=== PATIENT | male | born 1980 | race Caucasian/White ===

== ENCOUNTER 2018-11-09 16:36 | Inpatient (IN) | payer OTHER ==
[2018-11-09 17:08] LABS: #Basophils 0.1 thou/uL (0.0-0.2); #Eosinphils 0.1 thou/uL (0.0-0.7); #Lymphocytes 1.6 thou/uL (1.20-3.40); #Monocytes 0.6 thou/uL (0.11-0.59); #Neutrophils 8.5 thou/uL (1.40-6.50); %Basophils 0.7 % (0.0-1.0); %Eosinophils 0.7 % (0.0-10.0); %Lymphocytes 14.7 % (21.0-51.0); %Monocytes 5.5 % (0.0-10.0); %Neutrophils 78.4 % (42.0-75.0); Hemoglobin 14.8 g/dL (14.0-18.0); Mean Corpuscular HGB CONC 33.5 g/dL (32.0-36.0); Mean Corpuscular Hemoglobin 31.8 pg (27.0-31.0); Mean Corpuscular Volume 94.8 fL (78.0-98.0); Mean Platelet Volume 7.9 fL (7.4-10.4); Platelet Count 239 thou/uL (130-400); RBC Distribution Width 11.5 % (11.5-14.5); Red Blood Cell (RBC) Count 4.65 mill/uL (4.70-6.10); White Blood Cell (WBC) Count 10.9 thou/uL (4.8-10.8)
[2018-11-09 17:31] LABS: ALT (SGPT) 17 U/L (8-55); AST (SGOT) 11 U/L (5-34); Albumin 4.4 g/dL (3.5-5.0); Alkaline Phosphatase 63 U/L (40-150); Anion Gap 14 mmol/L (10-20); BUN (Urea Nitrogen) 12 mg/dL (8.9-20.6); Bilirubin, Total 0.4 mg/dL (0.2-1.2); Calc. Creatinine Clearance 0 mL/min (70-130); Calcium 9.2 mg/dL (7.8-10.44); Carbon Dioxide 23 mmol/L (22-29); Chloride 106 mmol/L (98-107); Estimated GFR-MDRD 85; Globulin 3.1 g/dL (2.4-3.5); Glucose 162 mg/dL (70-105); Potassium 4.2 mmol/L (3.5-5.1); Protein, Total 7.5 g/dL (6.0-8.3); Sodium 139 mmol/L (136-145)
--- NOTE | 2018-11-09 18:13 | RAD ---
PORTABLE CHEST ONE VIEW 11/09/18 at 4:55 p.m. HISTORY: Chest pain, syncope. Collapse. FINDINGS: Comparison made with exam of 11/30/10. The heart size is normal. The lungs are expanded without focal areas of consolidation, pneumothoraces or pleural effusions. IMPRESSION: No radiographic evidence of acute cardiopulmonary process. POS: [facility]
[2018-11-09] MEDS ORDERED: Ondansetron PF 4 MG/2 ML Vial IVP PRN (21:58)
[2018-11-09] MEDS ORDERED: Guaifenesin DM 100-10/5 ML UDCUP PO PRN (21:58)
[2018-11-09] MEDS ORDERED: Ondansetron ODT 4 MG TAB PO PRN (21:58)
[2018-11-09] MEDS ORDERED: Acetaminophen 650 MG Suppository PR PRN (21:58)
[2018-11-09] MEDS ORDERED: Acetaminophen 325 MG TAB PO PRN (21:58)
[2018-11-09] MEDS ORDERED: Senokot S 8.6-50 MG TAB PO PRN (21:58)
[2018-11-09 22:00] VITALS: BMI 27.8
[2018-11-09] MEDS ORDERED: Diltiazem 125 MG in Sodium Chloride 0.9% 100 ML IVPB SCH (22:15)
[2018-11-09] MEDS ORDERED: Enoxaparin Sodium 100 MG/ML SYRINGE SC SCH (22:15)
[2018-11-09] MEDS ORDERED: Famotidine 20 MG TAB PO SCH (22:15)
[2018-11-10 00:08] LABS: Troponin I Less than 0.010 ng/mL (< 0.028)
[2018-11-10 02:19] LABS: Troponin I Less than 0.010 ng/mL (< 0.028)
--- NOTE | 2018-11-10 02:31 | HP ---
PRIMARY CARE PHYSICIAN: Out of town. CHIEF COMPLAINT: Syncope, heart racing. HISTORY OF PRESENT ILLNESS: This is a 38-year-old white male with no known past medical history, who was in town picking up his daughter from school. He was sitting in his car and suddenly felt warm and lightheaded, turned on the air conditioner, but felt worse and then eventually passed out. He looked at the clock just before he passed out and then when he woke up it was about 10 minutes later. He also noticed a cracked right posterior molar that he thinks from hitting his chin on the steering wheel when he passed out. No other injuries. He did pickle solution maker his daughter from school, was driving down the street and felt lightheaded and heart racing, so he pulled over and they called an ambulance. He was found to be in atrial fibrillation with rapid ventricular rate, was brought to the emergency room, given Cardizem push in the ambulance. His heart rate came down from 160s to 120s when he arrived here, he was put on a Cardizem drip and is now running in the 90s to 110s. He is no longer having any lightheadedness or weakness. No other complaints. He never had any chest pain. PAST MEDICAL HISTORY: Intermittent acid reflux. PAST SURGICAL HISTORY: Bilateral eye surgery for lazy eye 20 years ago. SOCIAL HISTORY: No tobacco or illicit drug use. He drinks alcohol regularly. He did have about half a beer today. No caffeine intake. FAMILY HISTORY: Father and paternal grandmother had atrial fibrillation. ALLERGIES: 1,3 BUTYLENE GLYCOL. CURRENT MEDICATIONS: None. REVIEW OF SYSTEMS: CONSTITUTIONAL: No fevers. No chills. EYES: He does get intermittent double vision when he is tired. This is chronic. ENT: No congestion, drainage, or sore throat. CARDIOVASCULAR: See HPI. PULMONARY: No coughing, wheezing, or shortness of breath. GASTROINTESTINAL: No abdominal pain. No nausea or vomiting. No diarrhea or constipation. GENITOURINARY: No dysuria or hematuria. MUSCULOSKELETAL: No muscle aches or joint pain. He does feel a little sore along the front of his stomach and chest, however, but no bruising that he has noted. SKIN: No rashes or lesions noted. NEUROLOGIC: See HPI. No current numbness, tingling, or focal weakness. PHYSICAL EXAMINATION: VITAL SIGNS: Blood pressure 99/71, pulse 112, respirations 16, O2 saturation 99% on 2 L, temperature 97.3. GENERAL: This is a well-developed, well-nourished white male, in no acute distress. HEENT: Pupils equal, round, and reactive to light. Oropharynx clear without lesions, erythema, or exudate. The patient does appear to have a nondisplaced crack of his right second inferior molar without any pieces missing. NECK: Supple. No lymphadenopathy. No thyroid nodules or enlargement. HEART: Irregularly irregular rhythm. Mildly tachycardic. No murmurs, rubs, or gallops. LUNGS: Clear to auscultation bilaterally. No wheezes, crackles, or rhonchi. ABDOMEN: Soft. Mild tenderness to palpation in the anterior abdominal wall. No guarding. No rebound tenderness. No masses or hepatosplenomegaly. Normoactive bowel sounds. EXTREMITIES: No clubbing, cyanosis, or edema. Good peripheral pulses. SKIN: No rashes or lesions noted. No bruising or other evidence of trauma noted. NEUROLOGIC: Intact strength and sensation in all extremities. Normal reflexes. No facial droop please. IMAGING DATA: EKG done in the emergency room dose shows atrial fibrillation with rapid ventricular rate. No ST-segment changes. Chest x-ray; I did review the chest x-ray done in the emergency room along with the radiologist's report. There is no evidence of acute cardiopulmonary process. LABORATORY DATA: CBC grossly within normal limits. D-dimer negative. Complete metabolic panel notable for glucose of 162. Troponin was negative. Brain natriuretic peptide was normal. ASSESSMENT: 1. Atrial fibrillation with rapid ventricular rate, acute onset, currently controlled with Cardizem. We will put the patient in the IMCU. Continue Cardizem at 10 mg/hr and we will have Cardiology evaluate him. He will likely need EP evaluation as well and would probably benefit from cardioversion and ablation if amenable. We will get an echocardiogram as well. I am starting him on full-dose Lovenox. 2. Syncope secondary to atrial fibrillation with rapid ventricular rate, resolved with control of heart rate. 3. Tooth fracture, nondisplaced, not hurting currently. We will have him follow up with a dentist as an outpatient. 4. Gastrointestinal prophylaxis. We will put the patient on Pepcid twice a day. 5. Deep venous thrombosis prophylaxis. The patient was on Lovenox already. 6. Code status. I did discuss this with the patient, he is a full code. Should he be incapacitated, his medical decision maker would be his . Her name is nIes Orr. Job ID: [id number]
[2018-11-10 05:47] LABS: #Basophils 0.1 thou/uL (0.0-0.2); #Eosinphils 0.1 thou/uL (0.0-0.7); #Lymphocytes 1.9 thou/uL (1.20-3.40); #Monocytes 0.5 thou/uL (0.11-0.59); #Neutrophils 3.3 thou/uL (1.40-6.50); %Eosinophils 1.6 % (0.0-10.0); %Lymphocytes 32.3 % (21.0-51.0); %Monocytes 8.9 % (0.0-10.0); %Neutrophils 56.2 % (42.0-75.0); Hemoglobin 13.2 g/dL (14.0-18.0); Mean Corpuscular HGB CONC 32.2 g/dL (32.0-36.0); Mean Corpuscular Hemoglobin 31.3 pg (27.0-31.0); Mean Corpuscular Volume 97.2 fL (78.0-98.0); Mean Platelet Volume 8.1 fL (7.4-10.4); Platelet Count 210 thou/uL (130-400); RBC Distribution Width 11.7 % (11.5-14.5); Red Blood Cell (RBC) Count 4.22 mill/uL (4.70-6.10); White Blood Cell (WBC) Count 5.9 thou/uL (4.8-10.8)
[2018-11-10 06:06] LABS: Anion Gap 8 mmol/L (10-20); BUN (Urea Nitrogen) 9 mg/dL (8.9-20.6); Calc. Creatinine Clearance 142 mL/min (70-130); Carbon Dioxide 31 mmol/L (22-29); Chloride 108 mmol/L (98-107); Estimated GFR-MDRD 85; Glucose 111 mg/dL (70-105); Potassium 4.9 mmol/L (3.5-5.1); Sodium 142 mmol/L (136-145)
[2018-11-10] MEDS ORDERED: Enoxaparin Sodium 100 MG/ML SYRINGE SC SCH (09:00)
[2018-11-10] MEDS ORDERED: Famotidine 20 MG TAB PO SCH (09:00)
--- NOTE | 2018-11-10 14:47 | CON ---
DATE OF CONSULTATION: 11/10/2018 SERVICE: Pulmonary Medicine. REASON FOR CONSULT: [facility] patient. HISTORY OF PRESENT ILLNESS: The patient is a 38-year-old white male with past medical history significant for nothing. He was in his usual state of health when he had an abrupt onset of palpitations and lightheadedness. He actually syncopized for a couple of minutes. When he came to, his tooth was chipped. Apparently, he hit his chin on the steering wheel. He was at a complete stop when this occurred. He pulled out of the parking lot, which he was in, in order to find a place to recover. When he did this, he had onset of palpitations again, and some more lightheadedness, but this time did not pass out. His daughter called EMS Services and he was picked up and found to be in atrial fibrillation with RVR. Prior to this, he was in his usual state of health without fevers, chills, cough, sputum production, nausea, vomiting, diarrhea, or abdominal discomfort. PAST MEDICAL HISTORY: 1. Gastroesophageal reflux disease. 2. Atrial fibrillation, paroxysmal. PAST SURGICAL HISTORY: Eye surgery, 20 years ago, bilateral. SOCIAL HISTORY: Excessive alcohol, tobacco, or illicit drug use. He does drink some alcohol routinely. He had a beer for lunch, but prior to that, he did not have any alcohol in the last week. FAMILY HISTORY: Noncontributory. ALLERGIES: 1,3-BUTYLENE GLYCOL. MEDICATIONS: List of his inpatient medications were reviewed. REVIEW OF SYSTEMS: General; head, ears, eyes, nose, and throat; cardiovascular; respiratory; GI; ; musculoskeletal; neurologic; and skin are negative except as mentioned in the HPI. PHYSICAL EXAMINATION: VITAL SIGNS: Afebrile, pulse 66, blood pressure 106/69, respirations 11, and saturation 96% on room air. GENERAL: The patient is awake and alert, in no apparent distress. LUNGS: Excellent air entry without any prolonged expiratory phase, wheezing, rhonchi, or crackles. HEART: Bradycardic. Regular. ABDOMEN: Soft, nontender, and nondistended. Bowel sounds are positive. MUSCULOSKELETAL: No cyanosis or clubbing. No pitting in bilateral lower extremities. NEUROLOGIC: Grossly nonfocal. LABORATORY DATA: WBC 5.9, hemoglobin 13.2, and platelets 210,000. INR is less than 0.27. Basic metabolic profile is otherwise unremarkable. Liver function studies, troponin x3, and BNP are all unremarkable. IMAGING: Chest x-ray demonstrates normal cardiomediastinal silhouette. No acute cardiopulmonary abnormality is identified. There are no pleural effusions or consolidating changes. ASSESSMENT: 1. Atrial fibrillation with rapid ventricular response, returned to sinus bradycardia. 2. Syncope. DISCUSSION AND PLAN: The patient has maintained stability for the last 12 hours. At this point, he can transition to the telemetry unit. Echocardiogram was performed this morning, but results are pending. When the patient lands on the floor, he will have no further requirements for inpatient Pulmonary/Critical Care opinion, and I will sign off. Please call with additional questions or concerns through time. 70 minutes have been devoted to this patient in various activities. I personally reviewed all imaging studies and laboratory data noted within this document. For fifty percent of this time, I was interacting with the patient at the bedside or coordinating care with the care team. For the remainder of the time I was immediately available to the patient in the hospital unit. Job ID: [id number] [facility]ITAL[facility]rem[facility]
--- NOTE | 2018-11-10 20:15 | PDOC.PN ---
- Subjective Encounter Start Date: 11/10/18 Encounter Start Time: 14:30 Feels well. No complaints. Wants to get up and move around. - Objective Resuscitation Status - Order Detail: 11/09/18 19:46 Resuscitation Status Routine Resuscitation Status: FULL: Full Resuscitation Discussed with: Patient Vital Signs & Weight: Vital Signs (12 hours) Temp Pulse Ox 11/10/18 19:25 100 11/10/18 19:00 98.4 F 11/10/18 14:51 97.8 F 11/10/18 10:33 98.3 F Weight Weight 218 lb 14.4 oz Most Recent Monitor Data Heart Rate from ECG 70 NIBP 121/65 NIBP BP-Mean 83 Respiration from ECG 13 SpO2 100 I&O: 11/09/18 11/10/18 11/11/18 06:59 06:59 06:59 Intake Total 1000 Output Total 900 Balance 100 Result Diagrams: 11/10/18 05:22 11/10/18 05:22 Phys Exam - Physical Examination Constitutional: NAD Respiratory: no wheezing, no rales, no rhonchi Cardiovascular: RRR, no significant murmur, no rub Gastrointestinal: soft, non-tender, no distention Musculoskeletal: no edema Neurological: non-focal Dx/Plan (1) Paroxysmal atrial fibrillation with rapid ventricular response Code(s): I48.0 - PAROXYSMAL ATRIAL FIBRILLATION Status: Acute (2) Syncope Code(s): R55 - SYNCOPE AND COLLAPSE Status: Acute - Plan * Converted to NSR. * Off cardizem gtt. * Cardiology consult pending. * Echo results pending.
--- NOTE | 2018-11-10 23:41 | CON ---
DATE OF CONSULTATION: HISTORY OF PRESENT ILLNESS: The patient is a 38-year-old gentleman who developed palpitations and suddenly lost consciousness. The patient has no previous cardiac history. He was in his usual state of health when he started to feel warm and lightheaded. He was sitting in a car. The patient apparently lost consciousness. He reported noticing having palpitation prior to losing consciousness. He did not lose control of his bladder or bowel. The patient was taken to the emergency room for evaluation. PAST MEDICAL HISTORY: GE reflux. PAST SURGICAL HISTORY: Eye surgery. SOCIAL HISTORY: Nonsmoker. FAMILY HISTORY: Strong family history of atrial fibrillation. ALLERGIES: BUTYLENE GLYCOL. MEDICATIONS: None. REVIEW OF SYSTEMS: Ten-point system otherwise unremarkable. PHYSICAL EXAMINATION: GENERAL: Well-developed gentleman, in no acute distress. VITAL SIGNS: Blood pressure 104/70. NECK: No jugular venous distention. LUNGS: Clear to auscultation. HEART: Regular rate and rhythm. Normal S1 and S2. No murmurs. ABDOMEN: Nondistended. EXTREMITIES: Show no edema. VASCULAR: Radial pulses are 2+. LABORATORY DATA: White blood count 5.9, hemoglobin 13.2, hematocrit 41.0, and platelets are 210. His sodium was 142, potassium 4.9, chloride 108, bicarbonate 31, BUN was 9, creatinine 0.99. Troponin less than 0.01. His EKG revealed atrial fibrillation with a rapid ventricular response. IMPRESSION: 1. Atrial fibrillation. 2. Syncope. This gentleman presents with new onset atrial fibrillation. His echocardiogram reveals normal left ventricular systolic function. The patient will undergo a Cardiolite stress test to make sure there is no evidence of ischemia. The patient will be treated with aspirin. The patient will need to undergo EP evaluation with his rapid atrial fibrillation which may have caused the syncope. He may need to undergo an ablation. PLAN: 1. Proceed with Cardiolite stress testing. 2. Aspirin therapy. CHADS-VASc score is zero. 3. EP consultation. 4. Avoid operating a motor vehicle. Job ID: [id number] [facility]
[2018-11-11 04:29] VITALS: BP 100/61
--- NOTE | 2018-11-11 12:11 | PRG ---
DATE OF SERVICE: 11/11/2018 SERVICE: Pulmonary Medicine. INTERVAL HISTORY: The patient is going down for stress test today. He has no complaints of chest pain, fevers, or chills. He remains in normal sinus rhythm. PHYSICAL EXAMINATION: VITAL SIGNS: Afebrile, pulse 60, blood pressure 100/61, respirations 12, and saturation 100% on room air. GENERAL: The patient is awake and alert, in no apparent distress. LUNGS: Excellent air entry without any prolonged expiratory phase or wheezing present. HEART: Normal rate and regular. ABDOMEN: Soft, nontender, and nondistended. Bowel sounds are positive. MUSCULOSKELETAL: No cyanosis or clubbing. No pitting in the bilateral lower extremities. NEUROLOGIC: Grossly nonfocal. IMAGING STUDIES: Echocardiogram shows a normal ejection fraction with no significant valvular abnormalities. ASSESSMENT: 1. Atrial fibrillation with rapid ventricular response, returned to sinus rhythm. 2. Syncope. DISCUSSION AND PLAN: The patient is going down for stress test today. If this is normal, hopefully, he will be considered for transition home. Pulmonary/Critical Care will continue to follow along while he remains in this location, but when he goes to the floor, I will sign off. Please call with additional questions or concerns through time. Job ID: [id number]
--- NOTE | 2018-11-11 13:57 | NM ---
MYOCARDIAL PERFUSION SCAN: INDICATION: Chest pain. TECHNIQUE: The patient was given 10 mCi of technetium sestamibi for rest imaging and 27 mCi for stress imaging. FINDINGS: Normal activity in the left ventricle on stress and rest images. Normal activity seen on attenuation correction. No evidence of reversible ischemia. Wall motion appears normal. Ejection fraction recorded at 62%. IMPRESSION: No evidence of reversible ischemia. POS: [facility]
[2018-11-11] MEDS: Aspirin 325 mg Enteric Coated Tablet PO SCH (14:01)
--- NOTE | 2018-11-11 14:01 | PDOC.PN ---
- Subjective Encounter Start Date: 11/11/18 Encounter Start Time: 13:59 Subjective: No new problem -: Converted to and has remained in SR - Objective Resuscitation Status - Order Detail: 11/09/18 19:46 Resuscitation Status Routine Resuscitation Status: FULL: Full Resuscitation Discussed with: Patient Vital Signs & Weight: Vital Signs (12 hours) Temp Pulse Resp BP Pulse Ox 11/11/18 08:00 96 11/11/18 07:15 98.4 F 11/11/18 03:00 97.4 F L 69 12 100/61 99 Weight Weight 218 lb 14.4 oz Most Recent Monitor Data Heart Rate from ECG 60 NIBP 100/61 NIBP BP-Mean 74 Respiration from ECG 12 SpO2 100 I&O: 11/10/18 11/11/18 11/12/18 06:59 06:59 06:59 Intake Total 1000 500 Output Total 900 Balance 100 500 Result Diagrams: 11/10/18 05:22 11/10/18 05:22 Phys Exam - Physical Examination Constitutional: NAD HEENT: PERRLA, moist MMs Neck: no JVD, supple Respiratory: no wheezing, no rales, no rhonchi, clear to auscultation bilateral Cardiovascular: RRR, no significant murmur Gastrointestinal: soft, non-tender, no distention, positive bowel sounds Musculoskeletal: no edema, pulses present Neurological: non-focal, normal sensation, moves all 4 limbs Psychiatric: normal affect, A&O x 3 Dx/Plan (1) Syncope, cardiogenic Code(s): R55 - SYNCOPE AND COLLAPSE Status: Acute (2) Paroxysmal atrial fibrillation with rapid ventricular response Code(s): I48.0 - PAROXYSMAL ATRIAL FIBRILLATION Status: Acute Comment: Echo unremarkable. - Plan Awaiting stress test result. -: Awaiting EPS evaluation -: Continue close observation in the IMCU -: Get serum magnesium and repeat BMP in the am. * .
[2018-11-12 05:44] LABS: Anion Gap 10 mmol/L (10-20); BUN (Urea Nitrogen) 13 mg/dL (8.9-20.6); Calc. Creatinine Clearance 141 mL/min (70-130); Carbon Dioxide 31 mmol/L (22-29); Chloride 106 mmol/L (98-107); Estimated GFR-MDRD 83; Glucose 99 mg/dL (70-105); Magnesium 2.2 mg/dL (1.6-2.6); Potassium 4.4 mmol/L (3.5-5.1); Sodium 143 mmol/L (136-145)
[2018-11-12 07:20] VITALS: TEMP 98
[2018-11-12] MEDS: Aspirin 325 mg Enteric Coated Tablet PO SCH (10:28)
--- NOTE | 2018-11-12 11:47 | DIS ---
DATE OF ADMISSION: 11/09/2018 DATE OF DISCHARGE: 11/12/2018 DISCHARGE DIAGNOSES: 1. Cardiogenic syncope. 2. Paroxysmal atrial fibrillation with rapid ventricular response. CONSULTS: 1. Pulmonary and Critical Care. 2. Cardiology. 3. [place]. HOSPITAL COURSE: The patient is 38 years old, who was visiting from [place]. The patient had an episode of syncope preceded by acute onset of lightheadedness and later reported palpitations. He also has prior history of palpitations intermittently. The patient was found to be in atrial fibrillation with rapid ventricular response and was started on Cardizem infusion and spontaneously converted back to sinus rhythm. Cardiology consult was obtained. Acute myocardial infarction was ruled out with serial troponin. The patient also had a nuclear medicine stress test, which was negative for reversible ischemia. Electrophysiology saw the patient and recommended outpatient followup with athletic equipment custodian back home in [place]. The patient also was started on low-dose aspirin as well as low-dose Toprol-XL. The patient remained hemodynamically stable as well as in normal sinus rhythm and was subsequently discharged home to follow up with PCP and athletic equipment custodian. PHYSICAL EXAMINATION: VITAL SIGNS: Temperature 98.0, pulse 61, respiratory rate 15, blood pressure 112/58. GENERAL: Healthy young male, in no distress. Afebrile. Anicteric. Acyanotic. HEENT: Normocephalic, atraumatic. Pupils are equal and reacting to light. CARDIOVASCULAR: Regular rhythm and rate with normal heart sounds 1 and 2. RESPIRATORY: Good air entry bilaterally with no crackle or rhonchi or use of accessory muscles. GI: Full, soft, nontender, nondistended with normal bowel sounds. EXTREMITIES: Grossly normal looking, atraumatic with no edema, erythema, or cyanosis. NEUROLOGIC: Conscious, alert, and oriented x3 with appropriate mental status. Cranial nerves 2 through 12 are intact. CONDITION AT DISCHARGE: Stable. DISCHARGE MEDICATIONS: 1. Cetirizine 10 mg p.o. daily. 2. Omeprazole 1 tablet p.o. daily. 3. Aspirin 81 mg p.o. daily. 4. Metoprolol succinate 12.5 mg p.o. daily. TIME SPENT: Discharge took about 33 minutes. Job ID: [id number]
--- NOTE | 2018-11-12 17:38 | CON ---
DATE OF CONSULTATION: 11/12/2018 HISTORY OF PRESENT ILLNESS: I am seeing Mr. 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 Syncopal spell, possibly vasovagal. 2. Newly found atrial fibrillation with rapid ventricular rates. 3. No structural heart disease with negative echocardiogram and stress test this admission. LVEF 55% to 60%. No significant valvular heart disease except for mild MR and TR, normal left atrial size. 4. CHADS-VASc score of zero. 5. Family history of atrial fibrillation. 6. History of GERD. ALLERGIES: NONE NOTED. MEDICATIONS: At home included; 1. Zyrtec. 2. Prilosec. SUBJECTIVE: Mr. Orr is here, who has a syncopal spell. He was sitting in his car, where it is getting hot. He turned up the AC, and getting nauseous then he blacked out. Woke up still in the car in same position without any incontinence or postictal confusion. He did notice though his tooth was cracked and the back without obvious trauma to his face. The patient was brought to the ER. In the ER, he was noted to be in atrial fibrillation with rapid rate. Eventually with beta blockers and Lovenox was administered. The patient spontaneously converted back to sinus rhythm. Currently maintained sinus rhythm since the beginning of admission. He does notice some palpitations every now and then for the last 2 years. At times, it is on and off for 2 weeks recurrent. He never passed out before. He denies chest pains. No stroke-like symptoms. No PND, orthopnea, or lower extremity as he has fluid overload. No fever, chills, cough, or any other intercurrent illness. Rest of 12-point system otherwise unremarkable. PAST MEDICAL HISTORY: As above. He has history of GERD and some environmental allergies. SOCIAL HISTORY: The patient denied any smoking, EtOH, or drug abuse. He lives in [place]. He has visited his kids here in [place]. FAMILY HISTORY: Significant for the father, grandmother, and aunt having atrial fibrillation. Father had ablation procedure with Dr. Cool in the past. OBJECTIVE DATA: VITAL SIGNS: Initially blood pressure 99/71, heart rate 112, respirations 16, and O2 saturations 99%. More recently the blood pressures are 112/58, heart rate 60, and temperature 97.8 degrees Fahrenheit. GENERAL: He is alert and oriented man, in no apparent distress. NECK: Supple. Jugular veins not distended. CHEST: Coarse without crackles. HEART: Sounds are regular to rate and rhythm. No murmur or gallop. ABDOMEN: Benign. Bowel sounds are positive. No hepatosplenomegaly. Masses are felt. EXTREMITIES: Lower extremity without edema, clubbing, or cyanosis. Pulses are adequate. NEUROLOGIC: The patient is nonfocal. MUSCULOSKELETAL: Without joint swelling or deformity. SKIN: Without rash. DATABASE: EKG is reviewed. Initial EKG was atrial fibrillation, rate of 116 beats per minute. QTc measured somewhat longer at 460 milliseconds. Subsequent telemetry strips revealed sinus rhythm. LABORATORY DATA: White cell count initially 10.9 and now 5.9, hemoglobin 13.2, and platelet count is 210. The sodium 143, potassium 4.4, BUN 13, creatinine is 1.01. Troponin I is less than 0.001. ASSESSMENT AND PLAN: Mr. Orr is a 38-year-old man with no prior cardiac history, presenting after a syncopal spell. He was noted to be in atrial fibrillation, somewhat rapid rates, which eventually self-terminated. Now, he has underwent a cardiac workup, which was essentially negative apart from mild MR and TR. No other findings were noted. He is negative stress test. We discussed the reason for his syncopal spell. I suspect it is a combination of event the onset of the paroxysmal atrial fibrillation, somewhat rapid rates, but also possible vasovagal component cannot be completely ruled out. Either way, he has had a symptomatic atrial fibrillation with long history of palpitation prior to that. We discussed the avoidance of dehydration and the exposure to heat needing to resume supine position, but also discussed the potential option for addressing atrial fibrillation as well. Antiarrhythmic options versus ablation procedure are discussed. This may prefer not initiating antiarrhythmic agents, but I will start him on low-dose metoprolol. Hence, his CHADS-VASc score is zero - for now, aspirin is reasonable, although if ablation is considered, he might need to started on anticoagulant agent as well. I warned him about his risk of driving hence the recent syncope. Hence, he is from [place] and knows my partner from his family, Carlos. We will make arrangements for him to be a followed up with Dr. Cool. Job ID: [id number] [facility]
== END 2018-11-12 12:01 | disposition home or self-care (01) | DRG 310 ==
LOC: ERS 16:36 → IMCU/EMU 17:56
PROVIDERS: ADMIT Emergency Medicine; ATTEND Emergency Medicine
DX: I48.0 Paroxysmal atrial fibrillation (principal); S02.5XXA Fracture of tooth (traumatic), initial encounter for closed fracture; W22.8XXA Striking against or struck by other objects, initial encounter; K21.9 Gastro-esophageal reflux disease without esophagitis; Z98.890 Other specified postprocedural states; Z88.5 Allergy status to narcotic agent; Y92.89 Other specified places as the place of occurrence of the external cause
CPT/HCPCS: 36415; 71045; 78452; 80048; 80053; 83735; 83880; 84484; 85025; 85379; 93005; 93017; 93306; 96365; 96366; A9500; J1650; J3490